=== PATIENT | male | born 1970 | race African-American/Black ===

== ENCOUNTER 2025-08-05 10:45 | Outpatient (REF) | payer BC, SELFPAY ==
[2025-08-05 17:59] LABS: MANUAL DIFF FLAG NO
[2025-08-05 18:14] LABS: Hematocrit 45.1 % (42.0-52.0); Hemoglobin 15.1 g/dl (14.0-18.0); Imm Gran Abs Auto 0.00 X10*3/uL (0.00-0.03); Imm Gran Pct Auto 0.0 % (0.0-0.4); Lymphocytes Absolute Auto 1.1 X10*3/uL (1.2-4.9); Mean Corpuscular HGB Conc 33.5 g/dl (31.0-36.0); Mean Corpuscular Hemoglobin 28.3 pg (27.0-33.0); Mean Corpuscular Volume 84.6 fL (80.0-98.0); NRBC Abs Auto 0.000 X10*3/uL (0.0-0.012); NRBC Pct Auto 0.0 /100WBC (0.0-0.2); Platelet Count 244 X10*3/uL (160-400); Red Blood Count 5.33 X10*6/uL (4.60-5.80); White Blood Count 2.6 X10*3/uL (4.8-10.8)
[2025-08-05 18:35] LABS: Alanine Aminotransferase 26 U/L (0-40); Albumin Level 4.2 g/dL (3.5-5.0); Alkaline Phosphatase 73 U/L (39-117); Anion Gap 11 (12-20); Aspartate Amino Transferase 32 U/L (5-37); Blood Urea Nitrogen 11 mg/dL (9-16); Calcium 9.2 mg/dL (8.4-10.2); Carbon Dioxide 26 mmol/L (22-29); Chloride 108 mmol/L (96-108); Cholesterol 172 mg/dL (<200); Estimated Glomerular Filt Rate > 60; HDL Cholesterol 50 mg/dL (>40); Potassium 4.1 mmol/L (3.3-5.1); Sodium 141 mmol/L (135-145); Total Protein 7.4 g/dL (6.5-8.0); Triglycerides 52 mg/dL (<150)
[2025-08-05 18:42] LABS: Microalbum/Creatinine Ratio Ur 8.3 ug/mg cr (<30)
[2025-08-05 18:57] LABS: Folate 10.5 ng/mL (> or = 4.0); Vitamin B12 457 pg/mL (200-900)
[2025-08-05 18:58] LABS: Appearance Urine Clear; Glucose Urine UA Negative (Negative); PH 5.5 (5.0-9.0); Specific Gravity - Urine 1.015 (1.005-1.025)
[2025-08-08 04:52] LABS: HBS Num1 3.24 mIU/mL (0-7.99); HBsAGNum1 0.29 S/CO (0.00-0.99); HIV Num 1 0.06 S/CO (0.00-0.99); Hepatitis B Surface Antigen Negative (Negative); ~HepC Num1 0.09 S/CO (0.00-0.79); ~Hepatitis B Surface Antibody NONREACTIVE (Nonreactive); ~Hepatitis C Antibody Nonreactive (Nonreactive)
[2025-08-10 15:23] LABS: VITAMIN D (1,25 OH) D3 62 pg/mL; Vit D (1,25-Dihydroxy) Total 62 pg/mL (18-72); Vitamin D (1,25 OH) D2 <8 pg/mL
== END 2025-08-05 10:46 | disposition home or self-care (01) ==
LOC: HO.HKASLDS 10:45
PROVIDERS: Visit Provider Student in an Organized Health Care Education/Training Program
DX: Z76.89 Persons encountering health services in other specified circumstances (principal); Z13.9 Encounter for screening, unspecified; Z71.9 Counseling, unspecified; Z13.1 Encounter for screening for diabetes mellitus; Z13.220 Encounter for screening for lipoid disorders; Z13.31 Encounter for screening for depression; Z11.4 Encounter for screening for human immunodeficiency virus [HIV]; Z11.3 Encounter for screening for infections with a predominantly sexual mode of transmission; E66.811 Obesity, class 1; I10 Essential (primary) hypertension; E78.5 Hyperlipidemia, unspecified; Z68.31 Body mass index [BMI] 31.0-31.9, adult
CPT/HCPCS: 36415; 80053; 80061; 81003; 82043; 82570; 82607; 82652; 82746; 83036; 84443; 85025; 86706; 86803; 87340; 87389; 96127

== ENCOUNTER 2025-08-05 10:45 | Outpatient (AMB) | payer BC, SELFPAY ==
--- NOTE | 2025-08-05 10:50 | A.OFFPC_ITS ---
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 Essential Hypertension: - The patient has a history of essential hypertension managed with lisinopril 10 mg daily. - Blood pressure is well-controlled with current medication regimen. Hyperlipidemia: - The patient is on atorvastatin 20 mg f or hyperlipidemia. - Lipid levels are managed with current medication. Review of Systems - Cardiovascular: Denies chest pain, pal pitations, or syncope. - Respiratory: Denies dyspnea, cough, or wheezing. - Gastrointestinal: Denies abdominal veronica n, nausea, or vomiting. - Neurological: Denies headaches, dizzin ess, or balance issues. - Sleep: Reports good sleep quality, den ies daytime somnolence. 10-point ROS reviewed and negative excep t as noted in HPI Past Medical History - Essential Hypertension, managed with l isinopril 10 mg daily. - Hyperlipidemia, managed with atorvasta tin 20 mg daily. Health Maintenance - Routine blood tests including CBC, CMP , lipid panel, and A1c. - Screening for Hepatitis B, Hepatitis C , and HIV. - Colonoscopy performed at age 48, next due at age 58. Physical Exam General: Well-appearing, in no acute distress. Vital signs: Blood pressure looks good. O2 saturation is good. Everything looks good. HEENT: Normocephalic, atraumatic. PERRLA, EOMI. Conjunctiva clear, sclera anicteric. Oropharynx clear, mucous membranes moist. TMs intact bilaterally. Neck: Supple, no lymphadenopathy, no thyromegaly, no JVD or carotid bruits. Cardiovascular: RRR, normal S1/S2, no murmurs, rubs, or gallops. Peripheral pulses 2+ and symmetric. No edema. Respiratory: Lungs clear to auscultation bilaterally, no wheezes, rales, or rhonchi. Normal effort. Abdomen: Soft, non-tender, non-distended. Normoactive bowel sounds. No hepatosplenomegaly, no masses. MSK: Full range of motion, no joint swelling or deformity. Normal gait. Skin: Warm, dry, intact. No rashes, lesions, or pallor. Neuro: Alert and oriented x3. Cranial nerves II-XII intact. Strength 5/5 throughout. Sensation intact. Reflexes 2+ symmetric. Normal coordination and gait. Psych: Appropriate mood and affect. Normal judgment and insight. Plan 1. Essential Hypertension - Continue lisinopril 10 mg daily. Monit or renal function with routine blood tests. 2. Hyperlipidemia - Continue atorvastatin 20 mg daily. Mon itor lipid levels with routine blood tests. Discussion Notes During the visit, I discussed the importance of routine monitoring of blood pressure and lipid levels. We reviewed the need for regular blood tests to monitor renal function and lipid levels due to the patient's current medications. I also emphasized the importance of continuing current medications and maintaining regular follow-up appointments. Patient was informed and verbally consented to the use of an ambient scribe for clinic note documentation during this visit. Patient Instructions - Continue taking lisinopril 10 mg daily for blood pressure management. - Continue taking atorvastatin 20 mg andrew ly for cholesterol management. - Schedule routine blood tests as discus sed to monitor health status. - Follow up with your doctor for regular check-ups. [facility] Family History (Updated 08/05/25 @ 10:51 by Deysi Gutierrez CMA) Mother No problems noted. Father No problems noted. Social History (Updated 08/05/25 @ 11:06 by Deysi Gutierrez CMA) Housing: House Alcohol intake: current Patient Tobacco Use Status: Never used Tobacco service: No Current occupational status: employed Cognitive needs: No Hearing needs: No Vision needs: No Questionnaire Thrive Questionnaire Date Thrive assessed: 08/05/25 I am a: Patient What is your living situation today?: I have a steady place to live Within the past 12 months, did the food you bought not last and you didn't have the money to get more?: Never true Within the past 12 months, did you worry whether your food would run out before you got money to buy more?: Never true Do you have trouble paying for medicines?: No Do you have trouble getting transportation to medical appointments?: No Do you have trouble paying your heating and electricity bill?: No Do you have trouble taking care of your child, family member or friend?: No Do you have trouble with day-to-day activities such as bathing, preparing meals, shopping, managing finances, etc.?: No Are you currently unemployed and looking for a job?: No Are you interested in more education?: No Please select the resources that you would like help with: None Currently or been in a relationship where the following occur: No concerns reported THRIVE Score: 0 AUDIT C Alcohol Use Questionnaire (AUDIT-C) 1. How often do you have a drink containing alcohol?: Monthly or less 2. How many drinks containing alcohol do you have on a typical day when you are drinking?: 3 or 4 3. How often do you have six or more drinks on one occasion?: Never Total Score: 2 DAVON-7 AMB Questionnaire DAVON-7 Date DAVON - 7 assessed: 08/05/25 Feeling nervous, anxious, or on edge: 0 = Not at all Not being able to stop or control worryin = Not at all Worrying too much about different things: 0 = Not at all Trouble relaxin = Not at all Being so restless that it is hard to sit still: 0 = Not at all Becoming easily annoyed or irritable: 0 = Not at all Feeling afraid as if something awful might happen: 0 = Not at all Total DAVON-7 score (0-4 normal; 5-9 mild; 10-14 moderate; 15-21 severe): 0 Source: Developed by Drs. Rory Curry, Dhara Tarango, Jose Liriano and colleagues, with an educational chad from [employer]. Physical exam (Primary Care) Vital Signs: Last Vital Signs Temp 97.9 F 08/05/25 10:52 Pulse 76 08/05/25 10:52 BP 124/78 08/05/25 10:52 Pulse Ox 99 08/05/25 10:52 Oxygen Delivery Method Room Air 08/05/25 10:52 BMI result Body Mass Index 31.9 Tobacco/Smoking Status: Tobacco use Status Tobacco use date assessed 08/05/25 08/05/25 11:03 Patient Tobacco Use Status Never used Tobacco 08/05/25 11:06 Thrive Assessment: Date of Thrive Assessment Date Thrive assessed 08/05/25 08/05/25 11:03 Currently or been in a relationship where the following occur: No concerns reported Coding Level of Care Code New Pt Level 3 (10051) Diagnoses Encounter to establish care with new provider Z76.89 Encounter for screening, unspecified Z13.9 Counseling, unspecified Z71.9 Class 1 obesity E66.811 Screening for diabetes mellitus Z13.1 Screening for lipoid disorders Z13.220 Screening for depression Z13.31 Screening for HIV (human immunodeficiency virus) Z11.4 Routine screening for STI (sexually transmitted infection) Z11.3 Hypertension I10 Hyperlipidemia E78.5 Assessment & Plan Assessment & Plan (1) Encounter to establish care with new provider: Code(s): Z76.89 - Persons encountering health services in other specified circumstances (2) Encounter for screening, unspecified: Code(s): Z13.9 - Encounter for screening, unspecified (3) Counseling, unspecified: Code(s): Z71.9 - Counseling, unspecified (4) Class 1 obesity: Code(s): E66.811 - Obesity, class 1 (5) Screening for diabetes mellitus: Code(s): Z13.1 - Encounter for screening for diabetes mellitus (6) Screening for lipoid disorders: Code(s): Z13.220 - Encounter for screening for lipoid disorders (7) Screening for depression: Code(s): Z13.31 - Encounter for screening for depression (8) Screening for HIV (human immunodeficiency virus): Code(s): Z11.4 - Encounter for screening for human immunodeficiency virus [HIV] (9) Routine screening for STI (sexually transmitted infection): Code(s): Z11.3 - Encounter for screening for infections with a predominantly sexual mode of transmission (10) Hypertension: Code(s): I10 - Essential (primary) hypertension (11) Hyperlipidemia: Code(s): E78.5 - Hyperlipidemia, unspecified Plan Orders: Orders Complete Blood Count Auto Diff Today Z13.9 - Encounter for screening, uns pecified, Z76.89 - Persons encountering health services in other specified circumstances Hemoglobin A1c Today Z13.9 - Encounter for screening, unspecified, Z76.89 - Persons encountering health services in other specified circumstances UA CC w/rflx Micro + Cult Today Z13.9 - Encounter for screening, unspecified, Z76.89 - Persons encountering health services in other specified circumstances Vitamin B12 and Folate Today Z13.9 - Encounter for screening, unspecified, Z76.89 - Persons encountering health services in other specified circumstances Vitamin D 1,25 dihydroxy Today Z13.9 - Encounter for screening, unspecified, Z76.89 - Persons encountering health services in other specified circumstances Microalbumin, Random (w Creat) Today Z13.9 - Encounter for screening, unspecified, Z76.89 - Persons encountering health services in other specified circumstances Comprehensive Met. Panel Today Z13.9 - Encounter for screening, unspecified, Z76.89 - Persons encountering health services in other specified circumstances Hepatitis B Surface Antibody Today Z13.9 - Encounter for screening, unspecified, Z76.89 - Persons encountering health services in other specified circumstances Hepatitis B Surface Antigen Today Z13.9 - Encounter for screening, unspecified, Z76.89 - Persons encountering health services in other specified circumstances Hepatitis C Antibody Today Z13.9 - Encounter for screening, unspecified, Z76.89 - Persons encountering health services in other specified circumstances HIV Ab/Ag Today Z13.9 - Encounter for screening, unspecified, Z76.89 - Persons encountering health services in other specified circumstances Lipid Panel Today Z13.9 - Encounter for screening, unspecified, Z76.89 - Persons encountering health services in other specified circumstances TSH reflex Free T4 Today Z13.9 - Encounter for screening, unspecified, Z76.89 - Persons encountering health services in other specified circumstances Medications: New atorvastatin 20 mg PO DAILY 90 tabs 0RF lisinopril 10 mg PO DAILY 90 tabs 0RF
[2025-08-05 10:52] VITALS: BP 124/78; PULSE 76; TEMP 36.6; O2SAT 99; BMI 31.9
== END 2025-08-05 11:22 | disposition home or self-care (01) ==
LOC: HO.HMCFMS 10:45
PROVIDERS: PCP Student in an Organized Health Care Education/Training Program; Visit Provider Student in an Organized Health Care Education/Training Program
DX: I10 Essential (primary) hypertension (principal); E66.811 Obesity, class 1; E78.5 Hyperlipidemia, unspecified; Z68.31 Body mass index [BMI] 31.0-31.9, adult

== ENCOUNTER 2025-08-19 09:41 | Outpatient (AMB) | payer BC, SELFPAY ==
--- NOTE | 2025-08-19 09:45 | A.OFFPC_ITS ---
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 - No recent symptoms reported. Hyperlipidemia: - Labs reviewed for lipid profile. - Managed through current regimen. Review of Systems - General: Reports feeling well overall. - Cardiovascular: Denies chest pain, pal pitations. - Respiratory: Denies shortness of breat h, cough. - Neurological: Denies headaches, dizzin ess. - Psychiatric: Denies depression, anxiet y. 10-point ROS reviewed and negative excep t as noted in HPI Past Medical History - Essential Hypertension, managed with m edication. - Hyperlipidemia, managed with current m edication regimen. Health Maintenance - Recent lab tests indicate relatively s table control of chronic conditions. - Referral to repeat Complete Blood Coun t (CBC) in 6 months. Physical Exam General: Well-appearing, in no acute distress. Vital signs: Within normal limits. HEENT: Normocephalic, atraumatic. PERRLA, EOMI. Conjunctiva clear, sclera anicteric. Oropharynx clear, mucous membranes moist. TMs intact bilaterally. Neck: Supple, no lymphadenopathy, no thyromegaly, no JVD or carotid bruits. Cardiovascular: RRR, normal S1/S2, no murmurs, rubs, or gallops. Peripheral pulses 2+ and symmetric. No edema. Respiratory: Lungs clear to auscultation bilaterally, no wheezes, rales, or rhonchi. Normal effort. Abdomen: Soft, non-tender, non-distended. Normoactive bowel sounds. No hepatosplenomegaly, no masses. MSK: Full range of motion, no joint swelling or deformity. Normal gait. Skin: Warm, dry, intact. No rashes, lesions, or pallor. Neuro: Alert and oriented x3. Cranial nerves II-XII intact. Strength 5/5 throughout. Sensation intact. Reflexes 2+ symmetric. Normal coordination and gait. Psych: Appropriate mood and affect. Normal judgment and insight. Plan 1. Essential Hypertension - Continue Lisinopril, follow-up in thre e months with necessary tests. 2. Hyperlipidemia - Continue current medication regimen, w ith scheduled follow-up labs. Discussion Notes I reviewed the recent laboratory results with the patient. His white blood cell count was noted to be low. asymptomatic agreed to repeat the CBC in six months to monitor. His electrolyte and renal functions are currently stable along with his A1c and fasting glucose levels. His LDL cholesterol level was slightly above target at 112 mg/dL, but total cholesterol and HDL levels were within acceptable limits. I recommended maintaining his medication regimen for hypertension and hyperlipidemia. Scheduled follow-up labs and appointment in three months for comprehensive monitoring. Patient was informed and verbally consented to the use of an ambient scribe for clinic note documentation during this visit. Patient Instructions - Continue taking your medication as pre scribed. - Monitor blood pressure at home as advi sed. - Maintain a balanced diet and regular e xercise. - Follow-up with scheduled labs and appo intments. - Watch for any unusual symptoms and rep ort them immediately. Total time spent caring for the patient today was 30 minutes. This includes time spent before the visit reviewing the chart, time spent documenting, and time spent reviewing laboratory results, diagnostic imaging, medications, performing a medically necessary evaluation, counseling on diagnoses, care coordination, ordering appropriate tests, ordering appropriate medications. [facility] Family History Mother No problems noted. Father No problems noted. Social History Housing: House Alcohol intake: current Patient Tobacco Use Status: Never used Tobacco service: No Current occupational status: employed Cognitive needs: No Hearing needs: No Vision needs: No Questionnaire PHQ-9 Over the last 2 weeks, how often have you been bothered by any of the following problems? 1. Little interest or pleasure in doing things: not at all 2. Feeling down, depressed, or hopeless: not at all 3. Trouble falling or staying asleep, or sleeping too much: not at all 4. Feeling tired or having little energy: not at all 5. Poor appetite or overeating: not at all 6. Feeling bad about yourself - or that you are a failure or have let yourself or your family down: not at all 7. Trouble concentrating on things, such as reading the newspaper or watching television: not at all 8. Moving or speaking so slowly that other people could have noticed. Or the opposite - being so fidgety or restless that you have been moving around a lot more than usual: not at all 9. Thoughts that you would be better off or of hurting yourself in some way: not at all Total score: 0 Source: Developed by Drs. Rory Curry, Dhara Tarango, Jose Liriano and colleagues, with an educational chad from [employer]. Thrive Questionnaire Date Thrive assessed: 08/19/25 I am a: Patient What is your living situation today?: I have a steady place to live Within the past 12 months, did the food you bought not last and you didn't have the money to get more?: Never true Within the past 12 months, did you worry whether your food would run out before you got money to buy more?: Never true Do you have trouble paying for medicines?: No Do you have trouble getting transportation to medical appointments?: No Do you have trouble paying your heating and electricity bill?: No Do you have trouble taking care of your child, family member or friend?: No Do you have trouble with day-to-day activities such as bathing, preparing meals, shopping, managing finances, etc.?: No Are you currently unemployed and looking for a job?: No Are you interested in more education?: No Please select the resources that you would like help with: None Currently or been in a relationship where the following occur: No concerns reported THRIVE Score: 0 AUDIT C Alcohol Use Questionnaire (AUDIT-C) 1. How often do you have a drink containing alcohol?: Monthly or less 2. How many drinks containing alcohol do you have on a typical day when you are drinking?: 3 or 4 3. How often do you have six or more drinks on one occasion?: Never Total Score: 2 DAVON-7 AMB Questionnaire DAVON-7 Date DAVON - 7 assessed: 08/19/25 Feeling nervous, anxious, or on edge: 0 = Not at all Not being able to stop or control worryin = Not at all Worrying too much about different things: 0 = Not at all Trouble relaxin = Not at all Being so restless that it is hard to sit still: 0 = Not at all Becoming easily annoyed or irritable: 0 = Not at all Feeling afraid as if something awful might happen: 0 = Not at all Total DAVON-7 score (0-4 normal; 5-9 mild; 10-14 moderate; 15-21 severe): 0 Source: Developed by Drs. Rory Curry, Dhara Tarango, Jose Liriano and colleagues, with an educational chad from [employer]. Physical exam (Primary Care) Vital Signs: Last Vital Signs Temp 98.2 F 08/19/25 09:48 Pulse 83 08/19/25 09:48 BP 128/82 08/19/25 09:48 Pulse Ox 99 08/19/25 09:48 BMI result Body Mass Index 32.8 Tobacco/Smoking Status: Tobacco use Status Tobacco use date assessed 08/19/25 08/19/25 09:46 Patient Tobacco Use Status Never used Tobacco 08/19/25 09:46 PHQ-9: PHQ-9 Score PHQ-9: Total score 0 08/19/25 09:47 Thrive Assessment: Date of Thrive Assessment Date Thrive assessed 08/19/25 08/19/25 09:46 Currently or been in a relationship where the following occur: No concerns reported Coding Level of Care Code Est Pt Level 4 (65691) Diagnoses Hypertension I10 Hyperlipidemia E78.5 Class 1 obesity E66.811 Assessment & Plan Assessment & Plan (1) Hypertension: Code(s): I10 - Essential (primary) hypertension (2) Hyperlipidemia: Code(s): E78.5 - Hyperlipidemia, unspecified (3) Class 1 obesity: Code(s): E66.811 - Obesity, class 1 Plan
[2025-08-19 09:48] VITALS: BP 128/82; PULSE 83; TEMP 36.8; O2SAT 99; BMI 32.8
== END 2025-08-19 10:20 | disposition home or self-care (01) ==
LOC: HO.HMCFMS 09:41
PROVIDERS: PCP Student in an Organized Health Care Education/Training Program; Visit Provider Student in an Organized Health Care Education/Training Program
DX: I10 Essential (primary) hypertension (principal); E78.5 Hyperlipidemia, unspecified; E66.811 Obesity, class 1